=== PATIENT | male | born 1995 | race Caucasian/White ===

== ENCOUNTER 2019-11-03 18:50 | Emergency (ER) | payer OTHER ==
[~2019-11-03] VITALS: Ht 170.2 cm; Wt 70.5 kg
[2019-11-03 18:50] VITALS: BP 132/72
[2019-11-03] MEDS ORDERED: BACTRIM 160MG/800MG DS TAB PO ONE (19:15)
[2019-11-03] MEDS ORDERED: BACT800T5 PO (19:18)
== END 2019-11-03 19:26 | disposition home or self-care (01) ==
LOC: M ED 18:50
DX: L02.416 Cutaneous abscess of left lower limb (principal); B96.89 Other specified bacterial agents as the cause of diseases classified elsewhere

== ENCOUNTER 2020-01-16 00:35 | Emergency (ER) | payer OTHER ==
[~2020-01-16] VITALS: Ht 170.2 cm; Wt 72.6 kg
[2020-01-16 00:35] VITALS: BP 126/73
[~2020-01-16 00:35] MED LIST: BACT800T5 PO
[2020-01-16] MEDS ORDERED: IBUP80TA PO (00:43)
[2020-01-16] MEDS ORDERED: BACITRACIN OINTMENT 30GM TUBE TOP STA (01:31)
[2020-01-16] MEDS ORDERED: BACI500O8 TOP (01:33)
== END 2020-01-16 01:52 | disposition home or self-care (01) ==
LOC: M ED 00:35
DX: L55.0 Sunburn of first degree (principal)